=== PATIENT | female | born 2000 | race Caucasian/White ===

== ENCOUNTER → 2019-04-23 | Outpatient (CLI) | payer BC | LOC: LAB 13:07 | PROVIDERS: ATTEND Internal Medicine | DX: K11.7 Disturbances of salivary secretion (principal); M35.9 Systemic involvement of connective tissue, unspecified; Z84.89 Family history of other specified conditions | CPT/HCPCS: 36415; 86038; 86039; 86235; 86431 ==

== ENCOUNTER → 2020-07-10 | Outpatient (CLI) | payer BC ==
--- NOTE | 2020-07-10 12:25 | Diagnostic Imaging Report ---
INDICATION: Right breast lump. Sonographic interrogation of the superior right breast was performed. There is a small probable cyst at the 10:00 location of the right breast, 6 cm from the nipple measuring 6 mm x 3 mm x 5 mm. No solid mass is detected. IMPRESSION: Sub-centimeter cyst at 10:00 location right breast. The study is otherwise unremarkable. BI-RADS Category 2 ACR BI-RADS Category 2: Benign findings. Result letter will be mailed to the patient. Note: At least 10% of breast cancer is not imaged by mammography. Dictated by: Dictated on workstation # [id number]
== END ==
LOC: RAD 08:50
PROVIDERS: ATTEND Nurse Practitioner Family
DX: N60.01 Solitary cyst of right breast (principal)